=== PATIENT | male | born 1970 | race Caucasian/White ===

== ENCOUNTER 2018-01-13 15:22 | Emergency (ER) | payer BC ==
--- NOTE | 2018-01-13 17:13 | RAD REPORT ---
EXAM DESCRIPTION: RAD - Shoulder Left 2 View - 01/13/2018 4:29 pm CLINICAL HISTORY: Persistent left shoulder pain without a specific triggering event COMPARISON: None. TECHNIQUE: Internal and external rotation views of the left shoulder were obtained. FINDINGS: There is no fracture or dislocation. AC joint is normal in appearance. Acromial humeral carmen int space is normal. There is questionable soft tissue calcification along the superior margin of the humeral head on internal rotation. This is potentially a degenerative tendon calcification. IMPRESSION: Negative two-view left shoulder examination for acute finding. Minimal degenerative elsie nge present.
--- NOTE | 2018-01-13 17:13 | EDPHYS ---
Physician Documentation [facility] Name: Carrington Bolivar Jr Age: 47 yrs Sex: Male : 1970 Arrival Date: 01/13/2018 Time: 15:27 Bed 13 Private MD: Morro Stubbs ED Physician Jhoan Shelley HPI: 01/13 17:09 This 47 yrs old Male presents to ER via Ambulatory with complaints of gs Shoulder Pain, Arm Problem. 17:09 The patient or guardian complains of an injury, pain, that is acute. left shoulder. gs Context: resulted from repetitive motion, lifting. Onset: The symptoms/episode began/occurred 2 day(s) ago. Modifying factors: the symptoms are alleviated by nothing. The symptoms are aggravated by lifting weight. Associated signs and symptoms: Pertinent negatives: chest pain, shortness of breath. Associated signs and symptoms: Pertinent positives: tingling. Severity of symptoms: At their worst the symptoms were moderate, in the emergency department the symptoms are unchanged. The patient has experienced similar episodes in the past, a few times. Historical: - Allergies: 15:40 No Known Allergies; ch - Home Meds: 15:40 lisinopril 20 mg oral tab once daily [Active]; loratidine [Active]; Prilosec 20 mg Oral ch cpDR 1 cap once daily [Active]; Flonase 50 mcg/actuation Nasal spsn 1 spray 2 times per day [Active]; - PMHx: 15:40 acid reflux; Asthma; seasonal allergies; Anemia; Hypertension; Back pain- injury from war; - PSHx: 15:40 deviated septum; ch - Immunization history:: Adult Immunizations up to date. - Social history:: The patient lives at home, Smoking status: Patient uses tobacco products, smokes one pack cigarettes per day. - Ebola Screening: : Patient negative for fever greater than or equal to 101.5 degrees Fahrenheit, and additional compatible Ebola Virus Disease symptoms Patient denies travel to an Ebola-affected area in the 21 days before illness onset. ROS: 17:09 All other systems are negative. gs Exam: 17:09 Head/Face: Normocephalic, atraumatic. Eyes: Pupils equal round and reactive to light, gs extra-ocular motions intact. Lids and lashes normal. Conjunctiva and sclera are non-icteric and not injected. Cornea within normal limits. Periorbital areas with no swelling, redness, or edema. ENT: Nares patent. No nasal discharge, no septal abnormalities noted. Tympanic membranes are normal and external auditory canals are clear. Oropharynx with no redness, swelling, or masses, exudates, or evidence of obstruction, uvula midline. Mucous membranes moist. Neck: Trachea midline, no thyromegaly or masses palpated, and no cervical lymphadenopathy. Supple, full range of motion without nuchal rigidity, or vertebral point tenderness. No Meningismus. Chest/axilla: Normal chest wall appearance and motion. Nontender with no deformity. No lesions are appreciated. Cardiovascular: Regular rate and rhythm with a normal S1 and S2. No gallops, murmurs, or rubs. Normal PMI, no JVD. No pulse deficits. Respiratory: Lungs have equal breath sounds bilaterally, clear to auscultation and percussion. No rales, rhonchi or wheezes noted. No increased work of breathing, no retractions or nasal flaring. Abdomen/GI: Soft, non-tender, with normal bowel sounds. No distension or tympany. No guarding or rebound. No evidence of tenderness throughout. Back: No spinal tenderness. No costovertebral tenderness. Full range of motion. Skin: Warm, dry with normal turgor. Normal color with no rashes, no lesions, and no evidence of cellulitis. Neuro: Awake and alert, GCS 15, oriented to person, place, time, and situation. Cranial nerves II-XII grossly intact. Motor strength 5/5 in all extremities. Sensory grossly intact. Cerebellar exam normal. Normal gait. 17:09 Constitutional: The patient appears alert, awake. 17:09 Musculoskeletal/extremity: ROM: limited active range of motion, limited passive range of motion, limited active range of motion due to pain, limited passive range of motion due to pain, Circulation is intact in all extremities. the anterior aspect of left shoulder Tingling of extremity. 17:09 Neuro: Mentation: is normal, Cranial nerves: grossly normal, Motor: is normal. 17:09 Neuro: Cerebellar function: is grossly normal, Sensation: tingling, that is mild. Vital Signs: 15:40 BP 126 / 82; Pulse 71; Resp 18; Temp 98.3; Pulse Ox 99% on R/A; Weight 91.63 kg; Height ch 5 ft. 11 in. (180.34 cm); Pain 10/10; 16:40 BP 127 / 84; Pulse 68; Resp 19; Pulse Ox 99% on R/A; rb1 15:40 Body Mass Index 28.17 (91.63 kg, 180.34 cm) MDM: 16:09 Patient medically screened. gs 17:09 Differential diagnosis: DJD, tendonitis, fx, sprain, neuropathy. Data reviewed: vital gs signs, nurses notes. Counseling: I had a detailed discussion with the patient and/or guardian regarding: radiology results. Response to treatment: the patient's symptoms have mildly improved after treatment, and as a result, I will discharge patient. 01/13 16:09 Order name: Shoulder Left (2 View) XRAY Administered Medications: No medications were administered Disposition: 01/13/18 17:12 Discharged to Home. Impression: Other specific joint derangements of left shoulder, not elsewhere classified. - Condition is Stable. - Discharge Instructions: Shoulder Pain. - Prescriptions for Naprosyn 500 mg Oral Tablet - take 1 tablet by ORAL route 2 times per day As needed take with food; 30 tablet. - Work release form, Medication Reconciliation Form, Thank You Letter, Antibiotic Education, Prescription Opioid Use form. - Follow up: Noe Nance MD; When: 2 - 3 days; Reason: Re-evaluation by your physician. Signatures: Dispatcher [employer] EDPurvi Duval RN RN Olga Lidia Wilder RN RN [facility] Jhoan Shelley MD MD Corrections: (The following items were deleted from the chart) 17:23 17:12 01/13/2018 17:12 Discharged to Home. Impression: Other specific joint rb1 derangements of left shoulder, not elsewhere classified. Condition is Stable. Forms are Medication Reconciliation Form, Thank You Letter, Antibiotic Education, Prescription Opioid Use. Follow up: Noe Nance; When: 2 - 3 days; Reason: Re-evaluation by your physician. gs
--- NOTE | 2018-01-13 17:13 | ER ---
Nurse's Notes [facility] Emergency Department Name: Carrington Bolivar Jr Age: 47 yrs Sex: Male : 1970 Arrival Date: 01/13/2018 Time: 15:27 Bed 13 Private MD: Morro Stubbs Diagnosis: Other specific joint derangements of left shoulder, not elsewhere classified Presentation: 01/13 15:37 Presenting complaint: Patient states: pain to L shoulder for the past week, I think I ch pulled a muscle off. I had two cups of beer today. Transition of care: patient was not received from another setting of care. Onset of symptoms was January 05, 2018. Risk Assessment: Do you want to hurt yourself or someone else? Patient reports no desire to harm self or others. Initial Sepsis Screen: Does the patient meet any 2 criteria? No. Patient's initial sepsis screen is negative. Does the patient have a suspected source of infection? No. Patient's initial sepsis screen is negative. Care prior to arrival: None. 15:37 Method Of Arrival: Ambulatory 15:37 Acuity: DEVIN 4 Triage Assessment: 15:41 General: Appears in no apparent distress. uncomfortable, Behavior is cooperative, ch appropriate for age. Pain: Complains of pain in anterior aspect of left shoulder and posterior aspect of left shoulder Pain currently is 10 out of 10 on a pain scale. Historical: - Allergies: 15:40 No Known Allergies; - Home Meds: 15:40 lisinopril 20 mg oral tab once daily [Active]; loratidine [Active]; Prilosec 20 mg Oral ch cpDR 1 cap once daily [Active]; Flonase 50 mcg/actuation Nasal spsn 1 spray 2 times per day [Active]; - PMHx: 15:40 acid reflux; Asthma; seasonal allergies; Anemia; Hypertension; Back pain- injury from war; - PSHx: 15:40 deviated septum; - Immunization history:: Adult Immunizations up to date. - Social history:: The patient lives at home, Smoking status: Patient uses tobacco products, smokes one pack cigarettes per day. - Ebola Screening: : Patient negative for fever greater than or equal to 101.5 degrees Fahrenheit, and additional compatible Ebola Virus Disease symptoms Patient denies travel to an Ebola-affected area in the 21 days before illness onset. Screenin:45 Abuse screen: Denies threats or abuse. Nutritional screening: No deficits noted. rb1 Tuberculosis screening: No symptoms or risk factors identified. Fall Risk None identified. Assessment: 15:45 General: Appears in no apparent distress. comfortable, Behavior is calm, cooperative, rb1 Denies fever. Pain: Complains of pain in left shoulder Pain currently is 8 out of 10 on a pain scale. Pain began x 1 week. Neuro: Level of Consciousness is awake, alert, obeys commands, Oriented to person, place, time, situation. Cardiovascular: Capillary refill < 3 seconds is brisk in bilateral fingers. Respiratory: Airway is patent Respiratory effort is even, unlabored, Respiratory pattern is regular, symmetrical. GI: No signs and/or symptoms were reported involving the gastrointestinal system. : No signs and/or symptoms were reported regarding the genitourinary system. Derm: Skin is dry, Skin is normal, Skin temperature is warm. Musculoskeletal: Range of motion: limited in left shoulder. 16:40 Reassessment: Patient appears in no apparent distress at this time. No changes from rb1 previously documented assessment. Pt. and family updated on POC. Vital Signs: 15:40 BP 126 / 82; Pulse 71; Resp 18; Temp 98.3; Pulse Ox 99% on R/A; Weight 91.63 kg; Height ch 5 ft. 11 in. (180.34 cm); Pain 10/10; 16:40 BP 127 / 84; Pulse 68; Resp 19; Pulse Ox 99% on R/A; rb1 15:40 Body Mass Index 28.17 (91.63 kg, 180.34 cm) ED Course: 15:27 Patient arrived in ED. sb2 15:28 Morro Stubbs MD is Private Physician. sb2 15:38 Triage completed. ch 15:40 Arm band placed on left wrist. Patient placed in an exam room, on a stretcher. ch 15:41 Jhoan Shelley MD is Attending Physician. gs 15:41 Janel Zheng RN is Primary Nurse. ss 15:45 Patient has correct armband on for positive identification. Bed in low position. Call rb1 light in reach. Side rails up X 1. Pulse ox on. NIBP on. 16:27 X-ray completed. Portable x-ray completed in exam room. Patient tolerated procedure bb2 well. 16:29 Shoulder Left (2 View) XRAY In Process Unspecified. EDMS 17:11 Noe Nance MD is Referral Physician. 17:22 No provider procedures requiring assistance completed. Patient did not have IV access rb1 during this emergency room visit. Administered Medications: No medications were administered Outcome: 17:12 Discharge ordered by MD. gs 17:22 Discharged to home ambulatory, with family. rb1 17:22 Condition: stable 17:22 Discharge instructions given to patient, Instructed on discharge instructions, follow up and referral plans. medication usage, Demonstrated understanding of instructions, follow-up care, medications, Prescriptions given X 1. 17:23 Patient left the ED. rb1 Signatures: Dispatcher [employer] EDMS Purvi Salmeron, RN RN Janel Zheng RN RN Olga Lidia Wilder RN RN rb1 Jhoan Shelley MD MD Jana Anne bb2 Winnie Beltran sb2
== END 2018-01-13 17:23 | disposition home or self-care (01) ==
LOC: ER 15:22
DX: M24.812 Other specific joint derangements of left shoulder, not elsewhere classified (principal); X50.9XXA Other and unspecified overexertion or strenuous movements or postures, initial encounter; Y93.89 Activity, other specified; Y92.9 Unspecified place or not applicable; I10 Essential (primary) hypertension; F17.210 Nicotine dependence, cigarettes, uncomplicated; J45.909 Unspecified asthma, uncomplicated
CPT/HCPCS: 99283